=== PATIENT | female | born 1985 | race Hispanic/Latino ===

== ENCOUNTER 2017-10-21 20:06 | Emergency (ER) | payer MEDICAID ==
[2017-10-21] MEDS ORDERED: IPRATROPIUM/ALBUTEROL SULFATE 3 ML SOLUTION IH ONE ×2 (20:17→22:03)
[2017-10-21] MEDS ORDERED: PREDNISONE 20 MG TABLET ONE (20:37)
[2017-10-21 21:06] LABS: RAPID GROUP A STREP NEGATIVE (NEGATIVE)
== END 2017-10-21 22:35 | disposition home or self-care (01) ==
LOC: EDH 20:06
DX: O99.511 Diseases of the respiratory system complicating pregnancy, first trimester (principal); O99.281 Endocrine, nutritional and metabolic diseases complicating pregnancy, first trimester; J45.901 Unspecified asthma with (acute) exacerbation; E07.9 Disorder of thyroid, unspecified; Z3A.00 Weeks of gestation of pregnancy not specified
CPT/HCPCS: 87804; 87880; 94640

== ENCOUNTER 2017-12-17 11:10 | Emergency (ER) | payer MEDICAID ==
[2017-12-17 11:50] LABS: APPEARANCE,URINE Clear (CLEAR); BILIRUBIN,URINE Negative (NEGATIVE); COLOR,URINE Yellow (YELLOW); GLUCOSE, URINE (UA) Negative (NEGATIVE); KETONES,URINE Negative (NEGATIVE); LEUKOCYTE ESTERASE ,URINE Negative (NEGATIVE); NITRATE,URINE Negative (NEGATIVE); OCCULT BLOOD,URINE Negative (NEGATIVE); PH,URINE 7.5 (5.0-8.0); PROTEIN,URINE Negative (NEGATIVE)
[2017-12-17] MEDS ORDERED: ACETAMINOPHEN 325 MG TAB ONE (11:57)
[2017-12-17] MEDS ORDERED: ONDANSETRON ODT 4 MG TAB ONE (14:07)
[2017-12-17] MEDS ORDERED: HYOSCYAMINE SULFATE 0.125 MG TAB.SUBL SL ONE (14:07)
== END 2017-12-17 12:17 | disposition home or self-care (01) ==
LOC: EDH 11:10
DX: O26.891 Other specified pregnancy related conditions, first trimester (principal); R10.9 Unspecified abdominal pain; Z3A.13 13 weeks gestation of pregnancy
CPT/HCPCS: 81003

== ENCOUNTER 2017-12-21 14:32 | Inpatient (IN) | payer MEDICAID ==
[~2017-12-21] VITALS: Ht 154.9 cm; Wt 98.9 kg
[2017-12-21] MEDS ORDERED: PHARMACY COMMUNICATION MISC SCH (14:45)
[2017-12-21 14:55] VITALS: BP 118/71
[2017-12-21] MEDS ORDERED: GENTAMICIN SULFATE 80 MG/2 ML VIAL IM SCH (15:05)
[2017-12-21] MEDS ORDERED: LORA10CA9 PO (15:53)
[2017-12-21] MEDS ORDERED: GLYB5TAB8 PO (15:53)
[2017-12-21] MEDS ORDERED: PSEU30TA31 PO (15:53)
[2017-12-21] MEDS ORDERED: LEVO-85 PO (15:53)
[2017-12-21 15:55] VITALS: BP 110/62
[2017-12-21] MEDS ORDERED: GENTAMICIN 120 MG IN 100ML NS 100 ML IV SCH (16:13)
[2017-12-21] MEDS: GLYBURIDE 5 MG TABLET PO SCH (17:00)
[2017-12-21 17:13] LABS: HEMATOCRIT 34.4 % (36-48); MEAN CORPUSCULAR HEMOGLOBIN 23.9 pg (27.0-33.0); MEAN CORPUSCULAR VOLUME 72.6 fL (79-99); PLATELET COUNT (AUTO) 274 K/uL (130-400); RED BLOOD CELL COUNT(AUTO) 4.74 MIL/uL (4.00-5.50); RED CELL DISTRIBUTION WIDTH 18.8 % (11.0-15.5); WHITE BLOOD COUNT (AUTO) 9.9 K/uL (4.8-10.8)
[2017-12-21] MEDS: GENTAMICIN 120 MG IN 100ML NS 100 ML IV SCH (17:24)
[2017-12-21 17:28] LABS: CREATININE 0.6 mg/dL (0.5-1.5)
[2017-12-21] MEDS: LACTATED RINGERS 1000ML 1,000 ML IV SCH (17:36)
[2017-12-21 17:48] LABS: BAND NEUTROPHILS % (MANUAL) 2 % (0-2); EOSINOPHILS % (MANUAL) 8 % (1-6); LYMPHOCYTES % (MANUAL) 20 % (22-44); MAN.DIFF COMMENT-IMPRESSION MANUAL DIFFERENTIAL; MONOCYTES % (MANUAL) 5 % (2-9); REACTIVE LYMPHOCYTES 2 % (0-0); SEGMENTED NEUTROPHILS % 63 % (40-70)
[2017-12-21 20:16] VITALS: BP 123/76
[2017-12-21] MEDS: PSEUDOEPHEDRINE HCL 30 MG TAB PO PRN (21:19)
[2017-12-21] MEDS: LORATADINE 10 MG TABLET PO SCH (21:19)
[2017-12-21] MEDS ORDERED: ONDANSETRON HCL MDV 20ML 2 MG/ML VIAL IVP PRN (22:45)
[2017-12-21] MEDS ORDERED: MORPHINE SULFATE 2 MG/ML 1ML SYG IM PRN (22:45)
[2017-12-21 23:18] VITALS: BP 110/65
[2017-12-21] MEDS: ACETAMINOPHEN EXTRA STRENGTH 500 MG TABLET PO PRN (23:31)
[2017-12-22] VITALS (7 sets, daily range): BP systolic 104–123; BP diastolic 59–77
[2017-12-22] MEDS: GENTAMICIN 120 MG IN 100ML NS 100 ML IV SCH ×3 (01:54→18:00)
[2017-12-22] MEDS ORDERED: MORPHINE SULFATE 4 MG/1ML SYG ONE (02:20)
[2017-12-22] MEDS: LEVOTHYROXINE 50 MCG TABLET PO SCH (06:23)
[2017-12-22] MEDS: GLYBURIDE 5 MG TABLET PO SCH (08:18)
[2017-12-22] MEDS: ACETAMINOPHEN EXTRA STRENGTH 500 MG TABLET PO PRN (09:52)
[2017-12-22] MEDS: LACTATED RINGERS 1000ML 1,000 ML IV SCH (12:15)
[2017-12-22] MEDS ORDERED: AMMONIA 1 EA AMP IH ONE (12:51)
[2017-12-22] MEDS: MORPHINE SULFATE 4 MG/1ML SYG IM PRN ×2 (13:46→21:37)
[2017-12-22] MEDS: SODIUM CHLORIDE 0.9% 1000ML 1,000 ML IV SCH (14:47)
[2017-12-22] MEDS: LORATADINE 10 MG TABLET PO SCH ×2 (21:34→21:36)
[2017-12-23] MEDS: GENTAMICIN 120 MG IN 100ML NS 100 ML IV SCH ×3 (02:12→18:35)
[2017-12-23] MEDS: SODIUM CHLORIDE 0.9% 1000ML 1,000 ML IV SCH ×2 (02:13→12:18)
[2017-12-23 03:25] VITALS: BP 107/61
[2017-12-23] MEDS: LEVOTHYROXINE 50 MCG TABLET PO SCH (06:11)
[2017-12-23 07:27] VITALS: BP 109/58
[2017-12-23] MEDS: LACTATED RINGERS 1000ML 1,000 ML IV SCH (08:15)
[2017-12-23 08:46] LABS: HEMATOCRIT 32.5 % (36-48); MEAN CORPUSCULAR HEMOGLOBIN 23.7 pg (27.0-33.0); MEAN CORPUSCULAR HGB CONC 32.4 g/dL (32.0-36.0); MEAN CORPUSCULAR VOLUME 72.9 fL (79-99); PLATELET COUNT (AUTO) 263 K/uL (130-400); RED BLOOD CELL COUNT(AUTO) 4.46 MIL/uL (4.00-5.50)
[2017-12-23] MEDS: MORPHINE SULFATE 4 MG/1ML SYG IV PRN ×3 (10:15→22:32)
[2017-12-23 11:17] VITALS: BP 107/65
[2017-12-23 15:53] VITALS: BP 105/61
[2017-12-23 19:23] VITALS: BP 108/44
[2017-12-23] MEDS: LORATADINE 10 MG TABLET PO SCH (21:14)
[2017-12-24 00:18] VITALS: BP 96/45
[2017-12-24] MEDS: GENTAMICIN 120 MG IN 100ML NS 100 ML IV SCH ×3 (02:09→17:46)
[2017-12-24] MEDS: LACTATED RINGERS 1000ML 1,000 ML IV SCH (04:15)
[2017-12-24 04:27] VITALS: BP 112/63
[2017-12-24] MEDS: LEVOTHYROXINE 50 MCG TABLET PO SCH (06:30)
[2017-12-24 08:00] VITALS: BP 107/65
[2017-12-24] MEDS: MORPHINE SULFATE 4 MG/1ML SYG IV PRN ×2 (09:07→17:56)
[2017-12-24] MEDS: SULFAMETHOX-TMP DS 800/160 TAB PO SCH ×2 (11:09→20:36)
[2017-12-24] MEDS: SODIUM CHLORIDE 0.9% 1000ML 1,000 ML IV SCH ×3 (11:09→15:30)
[2017-12-24 12:00] VITALS: BP 108/59
[2017-12-24] MEDS: PSEUDOEPHEDRINE HCL 30 MG TAB PO PRN ×2 (14:01→20:35)
[2017-12-24 15:41] VITALS: BP 112/72
[2017-12-24 20:00] VITALS: BP 106/57
[2017-12-24] MEDS: LORATADINE 10 MG TABLET PO SCH (22:04)
[2017-12-25] VITALS (7 sets, daily range): BP systolic 97–107; BP diastolic 48–62
[2017-12-25] MEDS: SODIUM CHLORIDE 0.9% 1000ML 1,000 ML IV SCH ×3 (02:48→20:53)
[2017-12-25] MEDS: GENTAMICIN 120 MG IN 100ML NS 100 ML IV SCH ×3 (02:48→17:12)
[2017-12-25] MEDS: LEVOTHYROXINE 50 MCG TABLET PO SCH (06:24)
[2017-12-25] MEDS ORDERED: MORPHINE SULFATE 2 MG/ML 1ML SYG ONE (08:18)
[2017-12-25] MEDS: SULFAMETHOX-TMP DS 800/160 TAB PO SCH ×2 (08:41→20:53)
[2017-12-25] MEDS: PSEUDOEPHEDRINE HCL 30 MG TAB PO PRN ×3 (09:02→20:53)
[2017-12-25] MEDS: MORPHINE SULFATE 4 MG/1ML SYG IV PRN (20:01)
[2017-12-25] MEDS: LORATADINE 10 MG TABLET PO SCH (20:53)
[2017-12-26] MEDS: GENTAMICIN 120 MG IN 100ML NS 100 ML IV SCH ×3 (03:02→17:04)
[2017-12-26 03:20] VITALS: BP 101/54
[2017-12-26] MEDS ORDERED: MORPHINE SULFATE 2 MG/ML 1ML SYG ONE ×2 (05:14→15:53)
[2017-12-26] MEDS: LEVOTHYROXINE 50 MCG TABLET PO SCH (06:24)
[2017-12-26 07:50] VITALS: BP 112/65
[2017-12-26] MEDS: SODIUM CHLORIDE 0.9% 1000ML 1,000 ML IV SCH (10:03)
[2017-12-26 11:31] VITALS: BP 110/63
[2017-12-26 12:36] LABS: CREATININE 0.7 mg/dL (0.5-1.5)
[2017-12-26 16:14] VITALS: BP 104/75
== END 2017-12-26 18:15 | disposition home or self-care (01) | DRG 566 ==
LOC: WSH 14:32 → OBSVTOIN 14:32
PROVIDERS: ADMIT Obstetrics & Gynecology; ATTEND Obstetrics & Gynecology
DX: O24.415 Gestational diabetes mellitus in pregnancy, controlled by oral hypoglycemic drugs (principal); Z68.41 Body mass index [BMI] 40.0-44.9, adult; L98.8 Other specified disorders of the skin and subcutaneous tissue; O99.211 Obesity complicating pregnancy, first trimester; O99.281 Endocrine, nutritional and metabolic diseases complicating pregnancy, first trimester; E66.9 Obesity, unspecified; Z3A.13 13 weeks gestation of pregnancy; Z91.030 Bee allergy status; Z88.8 Allergy status to other drugs, medicaments and biological substances; Z91.018 Allergy to other foods
CPT/HCPCS: 36415; 80170; 82565; 82948; 84520; 85025; 85027; J1580; J2270; J3490; J7030; J7120

== ENCOUNTER 2018-07-31 14:01 | Emergency (ER) | payer MEDICAID ==
[~2018-07-31 14:01] MED LIST: GLYB5TAB8 PO; LEVO-85 PO; LORA10CA9 PO; PSEU30TA31 PO
== END 2018-07-31 15:13 | disposition home or self-care (01) ==
LOC: EDH 14:01
DX: J06.9 Acute upper respiratory infection, unspecified (principal); J45.909 Unspecified asthma, uncomplicated; Z91.030 Bee allergy status
CPT/HCPCS: 99281

== ENCOUNTER 2019-09-26 17:46 | Emergency (ER) | payer MEDICAID, OTHER ==
[2019-09-26] MEDS ORDERED: ASPIRIN 81MG TAB.CHEW ONE (18:36)
[2019-09-26] MEDS ORDERED: NITROGLYCERIN 0.4 MG SL TAB SL ONE (18:37)
[2019-09-26 18:56] LABS: BASOPHILS % (AUTO) 0.5 % (0.0-5.0); EOSINOPHILS % (AUTO) 4.5 % (0.0-8.0); HEMATOCRIT 36.4 % (36-48); LYMPHOCYTES % (AUTO) 24.5 % (21.0-51.0); MEAN CORPUSCULAR HEMOGLOBIN 22.4 pg (27.0-33.0); MEAN CORPUSCULAR HGB CONC 30.2 g/dL (32.0-36.0); MONOCYTES % (AUTO) 8.2 % (3.0-13.0); PLATELET COUNT (AUTO) 386 K/uL (130-400); RED BLOOD CELL COUNT(AUTO) 4.92 MIL/uL (4.00-5.50); WHITE BLOOD COUNT (AUTO) 9.5 K/uL (4.8-10.8)
[2019-09-26 19:05] LABS: CREATININE 0.9 mg/dL (0.5-1.5); POTASSIUM 3.6 mmol/L (3.5-5.1)
[2019-09-26 19:09] LABS: ALBUMIN 3.7 g/dL (3.5-5.0); BILIRUBIN,TOTAL 0.6 mg/dL (0.2-1.0); TOTAL PROTEIN, SERUM 8.1 g/dL (6.0-8.3)
[2019-09-26 19:34] LABS: INR 0.97 (0.85-1.15); PARTIAL THROMBOPLASTIN TIME 27.4 SEC (26.3-35.5); PROTHROMBIN TIME 10.2 SEC (9.6-11.6)
[2019-09-26] MEDS ORDERED: HYDROCODONE/ACETAMINOPHEN 5/325 MG TAB ONE (20:09)
[2019-09-26] MEDS ORDERED: SODIUM CHLORIDE 0.9% 1000ML 1,000 ML IV ONE (20:54)
[2019-09-26] MEDS ORDERED: KETOROLAC TROMETHAMINE 30MG/ML ONE (21:30)
== END 2019-09-26 21:46 | disposition home or self-care (01) ==
LOC: EDH 17:46
DX: R07.89 Other chest pain (principal); F41.9 Anxiety disorder, unspecified; J45.909 Unspecified asthma, uncomplicated; E07.9 Disorder of thyroid, unspecified; Z91.030 Bee allergy status
CPT/HCPCS: 36415; 71045; 80053; 82550; 84484 ×2; 85025; 85378; 85610; 85730; 93005 ×2; 96374; 99285; J1885; J7030

== ENCOUNTER 2019-11-18 21:58 | Emergency (ER) | payer OTHER ==
[2019-11-18] MEDS ORDERED: ACETAMINOPHEN EXTRA STRENGTH 500 MG TABLET ONE (23:19)
== END 2019-11-19 00:02 | disposition home or self-care (01) ==
LOC: EDH 21:58
DX: S93.502A Unspecified sprain of left great toe, initial encounter (principal); J45.909 Unspecified asthma, uncomplicated; E11.9 Type 2 diabetes mellitus without complications; Z91.030 Bee allergy status; X58.XXXA Exposure to other specified factors, initial encounter; Y93.89 Activity, other specified; Y92.89 Other specified places as the place of occurrence of the external cause; Y99.8 Other external cause status
CPT/HCPCS: 73660; 81025

== ENCOUNTER 2021-08-21 12:48 | Emergency (ER) | payer OTHER ==
[~2021-08-21] VITALS: Ht 160 cm; Wt 101.2 kg
[~2021-08-21 12:48] MED LIST changes: +PSEU30 PO; -PSEU30TA31 PO
[2021-08-21] MEDS ORDERED: CYCLOBENZAPRINE HCL 10 MG TABLET PO ONE (13:00)
[2021-08-21] MEDS ORDERED: KETOROLAC 30MG VIAL (30MG/ML) IV ONE (13:00)
[2021-08-21 13:28] LABS: BASOPHILS % (AUTO) 0.5 % (0.0-5.0); EOSINOPHILS % (AUTO) 2.4 % (0.0-8.0); HEMATOCRIT 39.3 % (36-48); LYMPHOCYTES % (AUTO) 21.4 % (21.0-51.0); MEAN CORPUSCULAR HEMOGLOBIN 24.7 pg (27.0-33.0); MEAN CORPUSCULAR HGB CONC 30.8 g/dL (32.0-36.0); MEAN CORPUSCULAR VOLUME 80.4 fL (79-99); NEUTROPHILS % (AUTO) 67.9 % (40.0-77.0); PLATELET COUNT (AUTO) 277 K/uL (130-400); RED BLOOD CELL COUNT(AUTO) 4.89 MIL/uL (4.00-5.50); RED CELL DISTRIBUTION WIDTH 15.2 % (11.0-15.5); WHITE BLOOD COUNT (AUTO) 8.7 K/uL (4.8-10.8)
[2021-08-21 13:44] LABS: ALBUMIN 3.7 g/dL (3.5-5.0); BILIRUBIN,TOTAL 0.7 mg/dL (0.2-1.0); CREATININE 0.8 mg/dL (0.5-1.5); CRP QUANTITATIVE 17.5 mg/L (0.00-9.0); POTASSIUM 3.8 mmol/L (3.5-5.1); TOTAL PROTEIN, SERUM 7.5 g/dL (6.0-8.3)
[2021-08-21 13:53] LABS: APPEARANCE,URINE Cloudy (CLEAR); BILIRUBIN,URINE Negative (NEGATIVE); COLOR,URINE Yellow (YELLOW); GLUCOSE, URINE (UA) >=1000 mg/dL (NEGATIVE); KETONES,URINE Negative (NEGATIVE); LEUKOCYTE ESTERASE ,URINE Negative (NEGATIVE); NITRATE,URINE Negative (NEGATIVE); OCCULT BLOOD,URINE Moderate (NEGATIVE); PH,URINE 7.5 (5.0-8.0); PROTEIN,URINE Negative (NEGATIVE)
[2021-08-21 14:23] LABS: BACTERIA,URINE Rare /HPF (None Seen); WBC,URINE 0-1 /HPF (0-1)
[2021-08-21 14:24] LABS: SQUAMOUS EPITHELIAL CELL,UR Few /HPF (0-2)
[2021-08-21] MEDS ORDERED: CYCL10TA16 PO (14:40)
[2021-08-21] MEDS ORDERED: ACET-2247 PO (14:40)
[2021-08-21 15:58] VITALS: BP 127/73
== END 2021-08-21 16:31 | disposition home or self-care (01) ==
LOC: EDH 12:48
DX: M94.0 Chondrocostal junction syndrome [Tietze] (principal); E11.65 Type 2 diabetes mellitus with hyperglycemia; I10 Essential (primary) hypertension; J45.909 Unspecified asthma, uncomplicated; E66.9 Obesity, unspecified; Z79.1 Long term (current) use of non-steroidal anti-inflammatories (NSAID); Z79.84 Long term (current) use of oral hypoglycemic drugs; Z68.39 Body mass index [BMI] 39.0-39.9, adult
CPT/HCPCS: 36415; 71045; 80053; 81001; 84484; 85025; 86140; 93005; 96374; 99285; J1885

== ENCOUNTER 2022-09-29 12:08 | Emergency (ER) | payer BC ==
[~2022-09-29] VITALS: Ht 157.5 cm; Wt 95.3 kg
[~2022-09-29 12:08] MED LIST changes: +ACET-2247 PO; +CYCL10TA16 PO
[2022-09-29 13:32] LABS: BASOPHILS % (AUTO) 0.4 % (0.0-5.0); HEMATOCRIT 41.2 % (36-48); LYMPHOCYTES % (AUTO) 20.4 % (21.0-51.0); MEAN CORPUSCULAR HEMOGLOBIN 23.9 pg (27.0-33.0); MEAN CORPUSCULAR HGB CONC 31.6 g/dL (32.0-36.0); MEAN CORPUSCULAR VOLUME 75.9 fL (79-99); MONOCYTES % (AUTO) 7.1 % (3.0-13.0); NEUTROPHILS % (AUTO) 69.6 % (40.0-77.0); PLATELET COUNT (AUTO) 320 K/uL (130-400); RED BLOOD CELL COUNT(AUTO) 5.43 MIL/uL (4.00-5.50); RED CELL DISTRIBUTION WIDTH 15.9 % (11.0-15.5); WHITE BLOOD COUNT (AUTO) 11.3 K/uL (4.8-10.8)
[2022-09-29 13:40] LABS: APPEARANCE,URINE CLEAR (CLEAR); BILIRUBIN,URINE NEGATIVE (NEGATIVE); COLOR,URINE LIGHT-YELLOW (YELLOW); GLUCOSE, URINE (UA) >=1000 mg/dL (NEGATIVE); HCG,QUALITATIVE URINE NEGATIVE (NEGATIVE); KETONES,URINE NEGATIVE (NEGATIVE); LEUKOCYTE ESTERASE ,URINE NEGATIVE Leu/uL (NEGATIVE); NITRATE,URINE NEGATIVE (NEGATIVE); OCCULT BLOOD,URINE NEGATIVE (NEGATIVE); PH,URINE 6.5 (5.0-8.0); PROTEIN,URINE 10 mg/dL (NEGATIVE)
[2022-09-29 13:56] LABS: MUCUS,URINE RARE LPF (None Seen); SQUAMOUS EPITHELIAL CELL,UR RARE /HPF (0-2); WBC,URINE 0-1 /HPF (0-1)
[2022-09-29] MEDS ORDERED: KETOROLAC 30MG VIAL (30MG/ML) IM ONE (15:00)
[2022-09-29] MEDS ORDERED: ACETAMINOPHEN 500 MG TABLET ONE (15:51)
[2022-09-29] MEDS ORDERED: ACETAMINOPHEN 500 MG TABLET PO ONE (16:00)
[2022-09-29 16:01] LABS: CREATININE 0.7 mg/dL (0.5-1.5)
[2022-09-29 16:06] LABS: TOTAL PROTEIN, SERUM 8.4 g/dL (6.0-8.3)
[2022-09-29] MEDS ORDERED: CYCL10TA16 PO (16:29)
[2022-09-29] MEDS ORDERED: IBUP-2070 PO (16:29)
[2022-09-29 17:17] VITALS: BP 134/78
== END 2022-09-29 17:21 | disposition home or self-care (01) ==
LOC: EDH 12:08
DX: S29.012A Strain of muscle and tendon of back wall of thorax, initial encounter (principal); R19.7 Diarrhea, unspecified; R50.9 Fever, unspecified; R11.0 Nausea; E11.9 Type 2 diabetes mellitus without complications; E03.9 Hypothyroidism, unspecified; E78.00 Pure hypercholesterolemia, unspecified; I10 Essential (primary) hypertension; Z79.1 Long term (current) use of non-steroidal anti-inflammatories (NSAID); Z91.030 Bee allergy status; Z79.84 Long term (current) use of oral hypoglycemic drugs; X58.XXXA Exposure to other specified factors, initial encounter; Y93.89 Activity, other specified; Y92.89 Other specified places as the place of occurrence of the external cause; Y99.8 Other external cause status
CPT/HCPCS: 99284; 74176; 80053; 83690; 85025; 81001; 81025; 36415; 96372; J1885

== ENCOUNTER 2025-05-09 17:51 | Emergency (ER) | payer BC ==
[~2025-05-09] VITALS: Ht 154.9 cm; Wt 97.3 kg
[~2025-05-09 17:51] MED LIST changes: +IBUP-1492 PO
[2025-05-09 18:25] LABS: IMMATURE GRANULOCYTE ABSOLUTE 0.03 K/uL (0-1); NUCLEATED RED BLOOD CELLS 0.0 % (0.0-0.19); PLATELET COUNT (AUTO) 316 K/uL (130-400); RED BLOOD CELL COUNT(AUTO) 5.38 MIL/uL (4.00-5.50); RED CELL DISTRIBUTION WIDTH 15.9 % (11.0-15.5); WHITE BLOOD COUNT (AUTO) 10.1 K/uL (4.8-10.8)
[2025-05-09 18:35] LABS: CREATININE 0.7 mg/dL (0.5-1.0); GLOMERULAR FILTR. RATE CALC 113.0 mL/min (>90); GLUCOSE,RANDOM 97.0 mg/dL (70-105); SODIUM SERUM 137.0 mmol/L (136-145); UREA NITROGEN, BLOOD 14.0 mg/dL (7-18)
[2025-05-09 18:40] LABS: ASPARTATE AMINOTRANSFERASE 32.0 U/L (10-37); TOTAL PROTEIN, SERUM 8.2 g/dL (6.0-8.3)
[2025-05-09] MEDS: 0.9%NACL 1000ML 1,000 ML IV ONE (19:10)
[2025-05-09] MEDS ORDERED: IOHEXOL 350 MG/ML 100ML INFUS..BTL IV ONE (20:01)
--- NOTE | 2025-05-09 20:56 | HMCIMG ---
EXAM: CT Abdomen and Pelvis with IV contrast CLINICAL HISTORY: rlq abd pain TECHNIQUE: Axial computed tomography images of the abdomen and pelvis with intravenous contrast. CONTRAST: with intravenous contrast. COMPARISON: None provided. FINDINGS: LUNG BASES: The lung bases appear clear. No pleural effusions are seen. LIVER: Enlarged liver with diffuse fatty infiltration. GALLBLADDER AND BILE DUCTS: The gallbladder appears within normal limits. No radioopaque gallstones are seen. No biliary ductal dilatation is evident. PANCREAS: Unremarkable. SPLEEN: Splenomegaly. ADRENAL GLANDS: Unremarkable. KIDNEYS, URETERS, AND BLADDER: Normal kidneys. No hydronephrosis. STOMACH AND BOWEL: Unremarkable appearance of the stomach and bowel. No evidence of bowel obstruction. No evidence suggesting enteritis or colitis. APPENDIX: Normal appendix. PERITONEUM: No free fluid. No free air. LYMPH NODES: No lymphadenopathy is evident. REPRODUCTIVE: Unremarkable as visualized. VASCULATURE: No evidence of abdominal aortic aneurysm. BONES: No aggressive appearing osseous lesion. No acute osseous pathology evident. IMPRESSION: 1. No bowel obstruction or inflammation. Normal appendix. 2. Normal kidneys. No hydronephrosis. 3. Hepatosplenomegaly with fatty infiltration of the liver. /[place]
[2025-05-09 21:42] LABS: APPEARANCE,URINE CLEAR (CLEAR); GLUCOSE, URINE (UA) >=1000 mg/dL (NEGATIVE); LEUKOCYTE ESTERASE ,URINE NEGATIVE Leu/uL (NEGATIVE); NITRATE,URINE NEGATIVE (NEGATIVE); OCCULT BLOOD,URINE NEGATIVE (NEGATIVE)
[2025-05-09 21:43] LABS: ADD UA MICROSCOPIC NO
--- NOTE | 2025-05-09 22:23 | ERN ---
General Chief Complaint: Abdominal Pain Stated Complaint: ABDOMINAL PAIN Time Seen by MD: 17:53 Time Seen by Midlevel: 17:53 Source: patient History of Present Illness Initial Comments The patient is a morbidly obese 40-year-old female presenting to the emergency department for evaluation for lower quadrant pain. Denies any other symptoms Allergies: Coded Allergies: ketorolac (Unverified Allergy, Unknown, 05/09/25) Uncoded Allergies: BANDAIDS DRESSING (Allergy, Mild, RASH, 12/24/17) BEES (Allergy, Unknown, 12/21/17) CLOROX (Adverse Reaction, Unknown, 12/21/17) Home Meds Active Scripts Cyclobenzaprine HCl (Flexeril) 10 Mg Tab, 10 MG PO TID for 3 Days, #9 TAB Prov:SAHARA VASQUEZ V [employer] 09/29/22 Ibuprofen (Ibuprofen) 600 Mg Tablet, 600 MG PO Q6H PRN for PAIN for 5 Days, #20 TAB Prov:SAHARA VASQUEZ V [employer] 09/29/22 Acetaminophen (Tylenol) 325 Mg Tablet, 976 MG PO QIDP, #100 TAB Prov:TOMAS KAM 08/21/21 Cyclobenzaprine HCl (Flexeril) 10 Mg Tab, 10 MG PO BID, #40 TAB Prov:TOMAS KAM 08/21/21 Reported Medications Levothyroxine Sodium (Unithroid) 50 Mcg Tablet, 50 MCG PO DAILY, TAB 12/21/17 Glyburide (Glyburide) 5 Mg Tablet, 5 MG PO BID, TAB 12/21/17 Loratadine (Loratadine) 10 Mg Capsule, 10 MG PO DAILY, CAP 12/21/17 Pseudoephedrine HCl (Sudogest) 30 Mg Tablet, 30 MG PO TIDP PRN for NASAL CONGESTION, TAB 12/21/17 Past Medical History Past Medical History: Diabetes-Type II, Hypothyroid Medical History Other: BULGING DISC Past Surgical History: Surgical History Other: TOES Social History Social History: Lives with family ROS Dictation CONSTITUTIONAL: Negative except for HPI HEAD/FACE: Negative except for HPI EENT: Negative except for HPI RESPIRATORY: Negative except for HPI GASTROINTESTINAL/ABDOMINAL: Negative except for HPI GENITOURINARY: Negative except for HPI MUSCULOSKELETAL: Negative except for HPI INTEGUMENTARY: Negative except for HPI NEUROLOGICAL/PSYCH: Negative except for HPI HEMATOLOGIC/LYMPHATIC: Negative except for HPI All Systems Negative, Except as noted above. 13 point review of systems assessed and all negative except for above. Physical Exam Physical Exam Dictation Vital Signs reviewed General Appearance: Alert, oriented x 3, no acute distress, well developed, nourished. Head and Face: non-traumatic. Eyes: PERRL, pink conjunctivas, eyelid no trauma, anterior chamber with arcus senilis. Ears: Pinnas intact and no signs of trauma or erythema ear canals clear and no discharge TM no erythema Nose: No discharge, no bleeding. Oropharynx: Mouth normal, tongue pink, pharynx clear,no erythema, tonsils no exudates, no abscesses noted, mucous membrane moist Neck: Supple, non-tender, no thyromegaly, no masses, no JVD, no bruits Breast:Deferred Chest:No tenderness, no crepitus, no paradoxical movement, no retractions Lungs:Clear, well-ventilated, symmetric, no rales, no wheezing, no rhonchi, no stridor, good breath sounds bilaterally Heart: Regular rate, regular rhythm, no murmur, no gallops Vascular: no peripheral edema, Abdomen: Soft, positive bowel sounds, nondistended, no guarding, Right lower quadrant abdominal tenderness, no rebound, no masses no hepatomegaly, no splenomegaly, no Childers's sign, no hernias. Rectal: Deferred Genital: Deferred Neurological: Normal speech, motor function intact, sensory function intact Musculoskeletal: Neck nontender, full range of motion, back nontender, full range of motion, Extremities: nontender, full range of motion Skin: Color pink, dry, no turgor, no rash, no lacerations, no abrasions, no contusions. Lymphatic: Deferred Results Laboratory and Microbiology Lab and Micro Result Laboratory Tests Test 05/09/25 18:19 05/09/25 21:29 White Blood Count 10.1 K/uL (4.8-10.8) Red Blood Count 5.38 MIL/uL (4.00-5.50) Hemoglobin 12.2 g/dL (12.0-16.0) Hematocrit 41.0 % (36-48) Mean Corpuscular Volume 76.2 fL (79-99) L Mean Corpuscular Hemoglobin 22.7 pg (27.0-33.0) L Mean Corpuscular Hemoglobin Concent 29.8 g/dL (32.0-36.0) L Red Cell Distribution Width 15.9 % (11.0-15.5) H Platelet Count 316 K/uL (130-400) Mean Platelet Volume 9.4 fL (7.5-10.5) Immature Granulocyte % (Auto) 0.3 % (0-1) Neutrophils (%) (Auto) 68.1 % (40.0-77.0) Lymphocytes (%) (Auto) 21.4 % (21.0-51.0) Monocytes (%) (Auto) 7.8 % (3.0-13.0) Eosinophils (%) (Auto) 1.8 % (0.0-8.0) Basophils (%) (Auto) 0.6 % (0.0-5.0) Neutrophils # (Auto) 6.9 K/uL (1.8-7.7) Lymphocytes # (Auto) 2.2 K/uL (1.0-4.8) Monocytes # (Auto) 0.8 K/uL (0.1-1.0) Eosinophils # (Auto) 0.18 K/uL (0.00-0.70) Basophils # (Auto) 0.06 K/uL (0.00-0.20) Absolute Immature Granulocyte (auto 0.03 K/uL (0-1) Nucleated Red Blood Cells 0.0 % (0.0-0.19) Red Blood Cell Morphology See comments Sodium Level 137 mmol/L (136-145) Potassium Level 4.1 mmol/L (3.5-5.1) Chloride Level 100 mmol/L (101-111) L Carbon Dioxide Level 29 mmol/L (21-32) Blood Urea Nitrogen 14 mg/dL (7-18) Creatinine 0.7 mg/dL (0.5-1.0) Glomerular Filtration Rate Calc 113 mL/min (>90) Random Glucose 97 mg/dL (70-105) Total Calcium 8.7 mg/dL (8.5-10.1) Total Bilirubin 0.9 mg/dL (0.2-1.0) Aspartate Amino Transf (AST/SGOT) 32 U/L (10-37) Alanine Aminotransferase (ALT/SGPT) 32 U/L (12-78) Alkaline Phosphatase 118 U/L (50-136) Total Protein 8.2 g/dL (6.0-8.3) Albumin 4.0 g/dL (3.5-5.0) Lipase 35 U/L (16-77) Serum Test, Qualitative NEGATIVE (NEGATIVE) Urine Color LIGHT-YELLOW (YELLOW) Urine Appearance CLEAR (CLEAR) Urine pH 8.0 (5.0-8.0) Urine Specific [place] 1.037 (1.001-1.031) Urine Protein NEGATIVE mg/dL (NEGATIVE) Urine Glucose (UA) >=1000 mg/dL (NEGATIVE) H Urine Ketones NEGATIVE mg/dL (NEGATIVE) Urine Occult Blood NEGATIVE (NEGATIVE) Urine Nitrate NEGATIVE (NEGATIVE) Urine Bilirubin NEGATIVE mg/dL (NEGATIVE) Urine Urobilinogen 4.0 mg/dL (0.2-1.0) H Urine Leukocyte Esterase NEGATIVE Manjinder/uL Labs Reviewed?: Yes MDM MDM: Differential diagnosis: Acute appendicitis, diverticulitis, constipation, pyelonephritis, ureter stone There are no social concerns with this patient. Prescription drug management Prescriptions will include: None Medical management and examination interpretation discussions were had by me with other qualified healthcare professionals as indicated for the patient's care. ED Course Orders Procedure Category Date Status Time Cbc With Differential LAB 05/09/25 Complete 17:59 Comprehensive LAB 05/09/25 Complete Metabolic Panel 17:59 Lipase LAB 05/09/25 Complete 17:59 Urinalysis Profile LAB 05/09/25 Complete 17:59 Testing, LAB 05/09/25 Complete Serum Hcg 17:59 Morphine 2mg Syg PHA 05/09/25 Complete (Morphine 2mg Syg) 18:30 Ondansetron 4mg Inj PHA 05/09/25 Complete (Zofran 4mg Inj) 18:30 0.9%Nacl 1000ml (Ns PHA 05/09/25 Complete 1000ml) 18:30 Ct Abdomen/Pelvis CT 05/09/25 Resulted W/Contrast 19:09 Iohexol (Omnipaque) PHA 05/09/25 Complete 20:01 Morphine 2mg Syg PHA 05/09/25 In Process (Morphine 2mg Syg) 22:30 Current Medications Medications (Trade) Dose Ordered Sig/Shon Route PRN Reason Start Time Stop Time Status Last Admin Dose Admin Iohexol (Omnipaque) 35,000 mg STK-MED ONCE IV 05/09/25 20:01 05/09/25 20:02 DC Morphine Sulfate (morPHINE 2MG SYG) 2 mg ONCE ONCE IVP 05/09/25 18:30 05/09/25 18:31 DC 05/09/25 19:10 Morphine Sulfate (morPHINE 2MG SYG) 2 mg ONCE ONCE IVP 05/09/25 22:30 05/09/25 22:31 Ondansetron HCl (zoFRAN 4MG INJ) 4 mg ONCE ONCE IVP 05/09/25 18:30 05/09/25 18:31 DC 05/09/25 19:10 Sodium Chloride 1,000 ml @ 0 mls/hr ONCE ONCE IV 05/09/25 18:30 05/09/25 18:31 DC 05/09/25 19:10 Vital Signs Date Time Temp Pulse Resp B/P (MAP) Pulse Ox O2 Delivery O2 Flow Rate FiO2 05/09/25 19:41 98.8 89 16 122/76 98 Room Air* 0 05/09/25 17:57 98.2 102 18 131/77 97 Room Air* 0 05/09/25 17:53 98.2 102 18 131/77 97 Room Air 0 DX & DISP Disposition: Discharge Departure Impression: Primary Impression: Right lower quadrant abdominal pain Condition: Stable Additional Instructions: Your blood work today is unremarkable. You are not anemic. Your kidney function is normal. There was no evidence of a kidney infection or intestinal infection. No evidence of a kidney stone. Your CT scan of the abdomen/pelvis is normal. no abnormalities were noted Your urinalysis does not show any evidence of infection. Referrals: RK MENSAH MD (PCP) Time of Disposition: 22:25 I have reviewed the case, and I agree with, Diagnosis and Plan I performed the substantive portion of the visit. I have reviewed and personally made and approve the management plan that is documented in the note by myself or the CHRISTIANNE. I acknowledge for responsibility for the patient's management plan. MENDY GARCIA May 09, 2025 22:23
[2025-05-09 23:30] VITALS: BP 117/64; PULSE 90; RESP 16; TEMP 98.7; O2SAT 97
== END 2025-05-09 23:51 | disposition home or self-care (01) ==
LOC: EDH 17:51
DX: R10.31 Right lower quadrant pain (principal); E11.9 Type 2 diabetes mellitus without complications; E03.9 Hypothyroidism, unspecified; E66.01 Morbid (severe) obesity due to excess calories; Z79.84 Long term (current) use of oral hypoglycemic drugs; Z79.890 Hormone replacement therapy; Z91.030 Bee allergy status; Z68.41 Body mass index [BMI] 40.0-44.9, adult
CPT/HCPCS: 99284; 74177; 96361; 96374; 96375; 80053; 84703; 83690; 85025; 81003; 36415; 96376; J2270 ×2; J7030; J2405; Q9967